=== PATIENT | male | born 1990 | race American Indian/Alaskan Native ===

== ENCOUNTER 2022-03-18 00:12 | Emergency (ER) | payer BC ==
[2022-03-18 07:36] VITALS: BP 116/72
--- NOTE | 2022-03-18 08:12 | Emergency Department Report ---
ED Extremity Problem HPI - General Chief complaint: Neuro Symptoms/Deficit Stated complaint: LT HAND SHAKING WON'T STOP Source: patient Mode of arrival: Ambulatory Limitations: No Limitations - History of Present Illness Initial comments: 32-year-old male presents to the ED complaining left wrist pain x7 hours ago. He states that his left wrist started tremor. 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 He states the pipe boxes approximately anywhere from 1 pound to approximately 80 pound. He states the repetitive motion causes him to Hyperflex his weak wrist every day. Patient has no obvious swelling edema or distracting injury noted to his left wrist. Patient denies taking any prior medication to arrival. He has no obvious tremor tremors at present time. He is alert and oriented x3. No acute distress noted. Denies any fever chills or drug use. MD Complaint: extremity pain Onset/Timin -: hour(s) Severity scale (0 -10): 0 - Related Data Previous Rx's Medication Instructions Recorded Last Taken Type Ibuprofen [Motrin] 800 mg PO Q8HR PRN 15 Days #30 03/18/22 Unknown Rx tablet predniSONE [Deltasone] 50 mg PO QDAY 5 Days #5 tab 03/18/22 Unknown Rx Allergies Allergy/AdvReac Type Severity Reaction Status Date / Time No Known Allergies Allergy Verified 03/18/22 00:40 ED Review of Systems ROS: Stated complaint: LT HAND SHAKING WON'T STOP Other details as noted in HPI Constitutional: denies: chills, fever Eyes: denies: eye pain, eye discharge, vision change ENT: denies: ear pain, throat pain Respiratory: denies: cough, shortness of breath, wheezing Cardiovascular: denies: chest pain, palpitations Endocrine: no symptoms reported Gastrointestinal: denies: abdominal pain, nausea, diarrhea Genitourinary: denies: urgency, dysuria Musculoskeletal: denies: back pain, joint swelling, arthralgia Skin: denies: rash, lesions Neurological: denies: headache, weakness, paresthesias Psychiatric: denies: anxiety, depression Hematological/Lymphatic: denies: easy bleeding, easy bruising ED Past Medical Hx - Medications Home Medications: Home Medications Medication Instructions Recorded Confirmed Last Taken Type Ibuprofen [Motrin] 800 mg PO Q8HR PRN 15 Days #30 03/18/22 Unknown Rx tablet predniSONE [Deltasone] 50 mg PO QDAY 5 Days #5 tab 03/18/22 Unknown Rx ED Physical Exam - General Limitations: No Limitations General appearance: alert, in no apparent distress - Head Head exam: Present: atraumatic, normocephalic - Eye Eye exam: Present: normal appearance - ENT ENT exam: Present: mucous membranes moist - Neck Neck exam: Present: normal inspection - Respiratory Respiratory exam: Present: normal lung sounds bilaterally. Absent: respiratory distress - Cardiovascular Cardiovascular Exam: Present: regular rate, normal rhythm. Absent: systolic murmur, diastolic murmur, rubs, gallop - GI/Abdominal GI/Abdominal exam: Present: soft, normal bowel sounds - Rectal Rectal exam: Present: deferred - Extremities Exam Extremities exam: Present: normal inspection - Back Exam Back exam: Present: normal inspection - Neurological Exam Neurological exam: Present: alert, oriented X3 - Psychiatric Psychiatric exam: Present: normal affect, normal mood - Skin Skin exam: Present: warm, dry, intact, normal color. Absent: rash ED Course Vital Signs 03/18/22 03/18/22 00:16 07:35 Temperature 98.0 F 98.6 F Pulse Rate 88 64 Respiratory 18 16 Rate Blood Pressure 119/71 Blood Pressure 116/72 [Left] O2 Sat by Pulse 96 98 Oximetry ED Medical Decision Making - Medical Decision Making 32-year-old male presents to the ED complaining left wrist pain x7 hours ago. He states that his left wrist started tremor. 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 He states the pipe boxes approximately anywhere from 1 pound to approximately 80 pound. He states the repetitive motion causes him to Hyperflex his weak wrist every day. Patient has no obvious swelling edema or distracting injury noted to his left wrist. Patient denies taking any prior medication to arrival. He has no obvious tremor tremors at present time. He is alert and oriented x3. No acute distress noted. Denies any fever chills or drug use. Physical examination upon pressing on the median nerve patient has pain Rechecked the patient is resting quietly quietly and comfortable and feeling better. I discussed the results of diagnostic study, my clinical impression and the plan for further treatment with the patient. Patient agrees with plan and discharge at this present time. All question addressed. I have given the patient instruction regarding a diagnosis ,expectation ,follow- up and return precaution. I explained to the patient that emergent condition may arise and to return to the ED for new worsen and any new persisting condition. I have explained the importance of following up with the primary care physician or referral physician listed below has instructed. The patient verbalized understanding of discharge instruction. Critical care attestation.: If time is entered above; I have spent that time in minutes in the direct care of this critically ill patient, excluding procedure time. ED Disposition Clinical Impression: Carpal tunnel syndrome of left wrist Disposition: HOME / SELF CARE / HOMELESS Is pt being admited?: No Does the pt Need Aspirin: No Condition: Stable Instructions: Preventing Carpal Tunnel Syndrome, Carpal Tunnel Syndrome, [id number] Additional Instructions: Follow-up with a hand and wrist orthopedic in your area Return to the ED for any worsening symptom Wear brace when working Prescriptions: predniSONE [Deltasone] 50 mg PO QDAY 5 Days #5 tab Ibuprofen [Motrin] 800 mg PO Q8HR PRN 15 Days #30 tablet PRN Reason: Pain, Mild (1-3) Referrals: [facility] [Provider Group] - 3-5 Days Forms: Work/School Release Form(ED) Time of Disposition: 08:14
== END 2022-03-18 08:20 | disposition home or self-care (01) ==
LOC: ED 00:12
DX: G56.02 Carpal tunnel syndrome, left upper limb (principal)
CPT/HCPCS: 99282